=== PATIENT | female | born 1980 | race American Indian/Alaskan Native ===

== ENCOUNTER 2019-05-22 17:43 | Emergency (ER) | payer SELFPAY ==
[2019-05-22 18:13] VITALS: BP 127/70
--- NOTE | 2019-05-22 18:13 | Event Note ---
ED Screening Note Date of service: 05/22/19 Time: 18:11 ED Screening Note: 39 y/o female comes in for painful defecation. This initial assessment/diagnostic orders/clinical plan/treatment(s) is/are subject to change based on patients health status, clinical progression and re- assessment by fellow clinical providers in the ED. Further treatment and workup at subsequent clinical providers discretion. Patient/guardian urged not to elope from the ED as their condition may be serious if not clinically assessed and managed. Initial orders include:
== END 2019-05-22 20:50 | disposition left against medical advice (07) ==
LOC: ED 17:43
DX: R19.4 Change in bowel habit (principal); Z53.21 Procedure and treatment not carried out due to patient leaving prior to being seen by health care provider